=== PATIENT | male | born 1940 | race Caucasian/White ===

== ENCOUNTER → 2016-12-17 | Outpatient (CLI) | payer OTHER ==
[~2016-12-17] VITALS: Ht 172.7 cm; Wt 74.8 kg
[~2016-12-17] MED LIST: ALEVE220 MG PO; ASPIR 8181 M1 PO; CADUET 5 MG-101 EACH PO; LOVAZA1000 MG PO; PRISTIQ ER25 MG PO; XANAX1 MG PO
--- NOTE | ~2016-12-17 | HPC ---
[facility] [address] [place] [address] PAIN MANAGEMENT CONSULTATION Name: JENNIFER CRAIG Room #: REG EULALIO Jac#: [id number] Admission: 12/17/16 Attend Phys: Dino Sandoval DO Discharge: Date of : 42 Report #: [id number] THIS REPORT FOR: //name// CC: ARPITA Sandoval HISTORY OF PRESENT ILLNESS: The patient is a very pleasant 76-year-old gentleman seen in consultation at the request of Dr. Tineo for evaluation of pain, neck, right shoulder, posterior occiput. The patient notes symptoms have been present since June without specific antecedent trauma and overuse. Aleve 2 tablets b.i.d. has really afforded nominal efficacy. He notes he has some tingling behind the right ear, pain on the top of the right shoulder. Pain is exacerbated with side bending the head to the right. Notes symptoms are fairly nominal rates in the 0-1 on the VAS. Notes that they are transient again specifically with cervical side bending and sometimes the cervical flexion. REVIEW OF SYSTEMS: Complete review of systems attached to chart and gone over with the patient. The patient has been for couple of years, has relocated to [place] from [place] to be closer to his children. He is in remarkably good health, does not drink alcohol to excess nor does he use tobacco products. He does have some hypertension treated with Caduet, some low grade depression following loss of his . He is on Pristiq 25 mg a little bit of gastroesophageal reflux on no medication. He had been treated for prostate cancer in 2000, prostatectomy with no residual concerns. A little bit of dyslipidemia for which he takes Lovaza. Again, the patient is retired. Pain impact score is actually remarkably low 70. PHYSICAL EXAMINATION: GENERAL: Reveals a 5 feet 8 inches, 165 pounds gentleman in no acute distress at present. BMI is 25.1 kilograms per meter squared. VITAL SIGNS: Blood pressure is 158/80, pulse is 69, respirations 16. NEUROLOGIC: Cranial nerves 2-12 are grossly intact. Pupils equal, reactive to light and accommodation. Extraocular muscles are intact. MUSCULOSKELETAL: Cervical range of motion is modestly limited. Cervical side bending to the right and flexion both exacerbate pain with the tight sensation in the right splenius capitis and posterior occipital area a little bit of paresthesia in the top of the shoulder over the deltoid. Slight decreased left deltoid strength, though he is in a very good general health. He does have a slightly positive Tinel's on the left radial, again contralateral to the right-sided symptoms. Objective hand grasp strength is good with opposition of some to the index, long and ring finger. Congenitally he has had difficulty with thumb to fifth finger opposition. Remaining exam is unremarkable. HEART: Regular rhythmical without murmur. LUNGS: Clear to auscultation. [facility] [address] [place] [address] PAIN MANAGEMENT CONSULTATION Name: JENNIFER CRAIG Room #: REG EULALIO Nathan#: [id number] Admission: 12/17/16 Attend Phys: Dino Sandoval DO Discharge: Date of : 42 Report #: [id number] ABDOMEN: Unremarkable. EXTREMITIES: Lower extremity strength is preserved. Gait is tandem. Skin integument is intact. DIAGNOSTIC STUDIES: Include cervical spine series from 12/01/2016 noting moderate disk height loss at C5-C6 and C6-C7 with anterior protruding osteophytes noted at C2, C4, C5 C6, and C7. ASSESSMENT: Symptomatic cervical spondylosis by clinical exam, likely C2-C3 on the right. No radicular symptoms noted. Otherwise, remarkably healthy 76-year-old gentleman. RECOMMENDATIONS: We discussed therapeutic options today at length, at some point if symptoms remain problematic, we can consider facet joint injections under fluoroscopy, right C2-C3 and C3-C4. Presently, however, the patient feels symptoms are fairly nominal. Recommending continuing range of motion, moderate gym work, which he is currently doing, can consider topical Voltaren gel if indicated though again presently just low-dose Aleve seems to be moderately efficacious. Thank you for allowing me to participate in the patient's care. It appears that his symptoms are resolving somewhat spontaneously. I will be happy to see him any time if his symptoms become more problematic and/or start to interfere with function. Presently, however, we elected to postpone any interventional therapy. <ELECTRONICALLY SIGNED> By: Dino Sandoval DO 12/23/16 [id number] Dino Sandoval DO /nt
[2016-12-17 14:05] VITALS: BP 158/80
== END | disposition home or self-care (01) ==
LOC: PAIN 12:44
DX: M47.892 Other spondylosis, cervical region (principal); I10 Essential (primary) hypertension; F34.89 Other specified persistent mood disorders; K21.9 Gastro-esophageal reflux disease without esophagitis; E78.5 Hyperlipidemia, unspecified; Z85.46 Personal history of malignant neoplasm of prostate; Z79.899 Other long term (current) drug therapy; Z98.890 Other specified postprocedural states; Z79.82 Long term (current) use of aspirin

== ENCOUNTER → 2018-07-27 | Outpatient (CLI) | payer OTHER ==
[~2018-07-27] VITALS: Ht 172.7 cm; Wt 71.8 kg
[~2018-07-27] MED LIST changes: +ALTACE10 MG PO; +CELEBREX 200 M200 M1 PO; +GABAPENTIN 100100 MG PO; +LIPITOR10 MG PO; +TRAMADOL 50 MG50 MG PO
--- NOTE | ~2018-07-27 | HPC ---
[facility] [address] [place] [address] PAIN MANAGEMENT CONSULTATION Name: JENNIFER CRAIG Room #: REG EULALIO Ritu.#: [id number] Admission: 07/27/18 ������������������ Attend Phys: Joe Tran MD Discharge: ������������������ Date of : 42 Report #: [id number] THIS REPORT FOR: //name// CC: ARPITA Tran DATE OF SERVICE: 07/27/2018 CHIEF COMPLAINT: Low back pain with radicular features into the left L5-S1 distribution. The patient presents to the pain clinic today for an epidural injection. He has classic sciatica following an L5-S1 distribution on the left. He presents with an MRI report from February that demonstrates a bulging annulus with the left neural foraminal stenosis. The stenosis at L5-S1 and correlates with his symptoms. There is also an L4-L5 disk protrusion that encroaches a bit further to the right. His symptoms originally began on the right and then improved with physical therapy. There was some consideration given to piriformis syndrome. He is very active and young for his age. He is 78 years old, still likes to run with a dog and has otherwise been very physically fit. He lost 30 pounds after his 4 years ago. He has moved recently to [place] to be closer to family. MEDICATIONS: Tramadol 50 mg as needed, gabapentin 100 mg b.i.d., Celebrex 200 mg b.i.d. atorvastatin 10 mg daily. Ramipril daily, alprazolam 1 mg as needed at bedtime for sleep, aspirin 81 mg, Pristiq ER for situational depression. ALLERGIES: None. PAST MEDICAL HISTORY: Positive for prostatectomy in 2000. He has done well since that hernia repair in 2004. Treatment for hypertension. PHYSICAL EXAMINATION: GENERAL: Pleasant, outgoing 78-year-old. VITAL SIGNS: His blood pressure 153/95, heart rate 76, respirations 14. NEUROLOGIC: Moves independently from sitting to standing position and walks with a stable gait, but reports that he feels a tingling and weakness longer he is on his feet. He can stand without difficulty. He does have crutches that he brought with him today because of concern for fall. CHEST: Clear. CARDIAC: Rhythm is regular. BACK: Reveals good range of motion, minimal tenderness. Straight leg raising is positive on the left, reproducing symptoms in the L5-S1 distribution. There is no pain with internal and external rotation of the hips. No tenderness in [facility] [address] [place] [address] PAIN MANAGEMENT CONSULTATION Name: JENNIFER CRAIG Room #: REG EULALIO ChaneyHaylee#: [id number] Admission: 07/27/18 ������������������ Attend Phys: Joe Tran MD Discharge: ������������������ Date of : 42 Report #: [id number] any other joints. IMPRESSION: 1. Lumbar radiculopathy involving the left L5-S1 distribution. He has correlating neural foraminal narrowing on the MRI, which was reviewed personally. 2. Resolving L5 radiculopathy on the right. This presented before his current symptoms developed. PROCEDURE: Right paramedian epidural steroid injection under fluoroscopic guidance, L5-S1. DESCRIPTION OF PROCEDURE: He was taken to fluoroscopic suite, placed prone, skin prepped with ChloraPrep. Skin anesthetized over the L5-S1 interspace. A 20-gauge Tuohy epidural needle was advanced first attempt in the epidural space using a loss of resistance technique. There was no blood or CSF aspirated. 0.25 mL of Omnipaque injected and excellent epidurogram was achieved. Most of the dye spread into the left with some encroachment on the right. This was then followed by 4 mL of 0.5% lidocaine mixed with 80 mg of triamcinolone. He tolerated the procedure well and was observed for a short time and discharged. Follow up in 1 month. ��������������������������������������������� ���������������������������������������� By: ��������������������������������������������� [id number] Joe Tran MD /nt
[2018-07-27 14:55] VITALS: BP 153/95
--- NOTE | 2018-07-27 15:09 | NUR ---
Pain Clinic Assessment: 1. History of Osteoarthritis: Not Applicable History of Rheumatoid Arthritis: Not Applicable 2. Height: 5 ft. 8 in. 172.7 cm. Weight: 158.2 lb. oz. 71.759 kg. Patient's BMI: 24.1 3. Vital Signs: BP: 153/95 Pulse: 76 Resp: 14 Temp: 02 Sat: 97 ECG Mon: 4. Pain Intensity: 3 5. Fall Risk: Dizziness: N Needs help standing or walking: Y Fallen in the last 3 months: N Fall risk comments: 6. Patient on Blood Thinner: None 7. History of Hypertension: Y 8. Opioid Therapy greater than 6 weeks: N Opiate Contract Signed: 9. Risk Assessment Tool Provided: MODERATE RISK 07/23 10. Functional Assessment Tool: 11. Recreational Drug Use: Never Drug Type: Tobacco Use: Former Smoker Tobacco Type: Amount or Packs/day: How Many Years: Alcohol Use: Yes Frequency: Daily Quant: 2-3
== END | disposition home or self-care (01) ==
LOC: PAIN 07:03
DX: M54.16 Radiculopathy, lumbar region (principal); M99.73 Connective tissue and disc stenosis of intervertebral foramina of lumbar region; I10 Essential (primary) hypertension; Z79.899 Other long term (current) drug therapy; Z79.82 Long term (current) use of aspirin; Z98.890 Other specified postprocedural states; Z87.891 Personal history of nicotine dependence

== ENCOUNTER → 2018-08-24 | Outpatient (CLI) | payer OTHER ==
[~2018-08-24] VITALS: Ht 172.7 cm; Wt 70.1 kg
[~2018-08-24] MED LIST changes: +MOBIC15 MG PO
--- NOTE | ~2018-08-24 | HPC ---
[facility] [place] [address] PAIN MANAGEMENT CONSULTATION Name: JENNIFER CRAIG Room #: REG Emmy Chaney.#: [id number] Admission: 08/24/18 ������������������ Attend Phys: Joe Tran MD Discharge: ������������������ Date of : 44 Report #: [id number] THIS REPORT FOR: //name// CC: ARPITA Tran DATE OF SERVICE: 08/24/2018 Followup visit for low back pain with radiculopathy. The patient was seen last on 07/27/2018, received an L5-S1 left paramedian epidural injection. He responded beautifully with significant improvements in pain, although he still has about 30% of his pain. He would like to repeat another injection today and I think it is reasonable within the guidelines. He remains very active. Today, he reports that his pain score is still at its worst, is about a 7, but it varies day-to-day with hours getting in and out of bed and with active movements. It is alleviated with medication and repositioning. The epidural injection again provided fairly substantial pain relief. PHYSICAL EXAMINATION: GENERAL: He is a very fit-appearing 78-year-old, outgoing. VITAL SIGNS: Blood pressure is 138/86, heart rate 76, respirations 14. His BMI is 23.5. He can move easily from sitting to standing position. There are no antalgic features to his gait. There is straight leg raising and discomfort on the left side that follows an L5-S1 distribution. IMPRESSION: Lumbar radiculopathy, L5-S1. RECOMMENDATIONS: Repeat epidural injection under fluoroscopic guidance. PROCEDURE: He was taken to the fluoroscopic suite for the epidural. He was placed prone, skin prepped with ChloraPrep. Skin anesthetized at the L5-S1 interspace left of midline. A 20-gauge Tuohy epidural needle was advanced first attempt in the epidural space with loss of resistance. There was no blood or CSF aspirated. Omnipaque 1 mL was injected. Good spread of dye observed into the epidural space, was followed by 3 mL of 0.5% lidocaine mixed with 80 mg of triamcinolone. He tolerated the procedure well, was observed for 45 minutes and discharged. Followup visit planned in the pain clinic on an as needed basis. We had a [address] [address] PAIN MANAGEMENT CONSULTATION Name: KIARAJENNIFER STRATTON Room #: REG EULALIO Nathan#: [id number] Admission: 08/24/18 ������������������ Attend Phys: Joe Tran MD Discharge: ������������������ Date of : 44 Report #: [id number] discussion today about epidural injections and long-term management of chronic back pain. ��������������������������������������������� ���������������������������������������� By: ��������������������������������������������� [id number] Joe Tran MD /nt
[2018-08-24 10:38] VITALS: BP 138/86
--- NOTE | 2018-08-24 11:16 | NUR ---
Pain Clinic Assessment: 1. History of Osteoarthritis: Not Applicable History of Rheumatoid Arthritis: Not Applicable 2. Height: 5 ft. 8 in. 172.7 cm. Weight: 154.6 lb. oz. 70.126 kg. Patient's BMI: 23.5 3. Vital Signs: BP: 138/86 Pulse: 76 Resp: 14 Temp: 02 Sat: 97 ECG Mon: 4. Pain Intensity: 7-8 5. Fall Risk: Dizziness: N Needs help standing or walking: N Fallen in the last 3 months: N Fall risk comments: 6. Patient on Blood Thinner: None 7. History of Hypertension: Y 8. Opioid Therapy greater than 6 weeks: N Opiate Contract Signed: 9. Risk Assessment Tool Provided: MODERATE RISK 07/23 10. Functional Assessment Tool: 11. Recreational Drug Use: Never Drug Type: Tobacco Use: Former Smoker Tobacco Type: Amount or Packs/day: How Many Years: Alcohol Use: Yes Frequency: Quant:
== END | disposition home or self-care (01) ==
LOC: PAIN 06:48
DX: M54.16 Radiculopathy, lumbar region (principal); G89.29 Other chronic pain; Z87.891 Personal history of nicotine dependence; Z98.890 Other specified postprocedural states; Z79.899 Other long term (current) drug therapy

== ENCOUNTER → 2019-05-18 | Outpatient (CLI) | payer OTHER | LOC: SJCVC 12:54 | DX: I44.0 Atrioventricular block, first degree (principal); I25.10 Atherosclerotic heart disease of native coronary artery without angina pectoris; E78.5 Hyperlipidemia, unspecified; I10 Essential (primary) hypertension; I65.23 Occlusion and stenosis of bilateral carotid arteries; Z79.899 Other long term (current) drug therapy; Z85.46 Personal history of malignant neoplasm of prostate ==

== ENCOUNTER → 2019-05-18 | Outpatient (CLI) | payer OTHER | LOC: SJCVC 15:12 | DX: I44.0 Atrioventricular block, first degree (principal); I25.10 Atherosclerotic heart disease of native coronary artery without angina pectoris; E78.5 Hyperlipidemia, unspecified; I10 Essential (primary) hypertension; I65.23 Occlusion and stenosis of bilateral carotid arteries; Z79.82 Long term (current) use of aspirin; Z79.899 Other long term (current) drug therapy ==

== ENCOUNTER → 2019-09-17 | Outpatient (CLI) | payer OTHER | LOC: SJCVC 14:56 | DX: I44.0 Atrioventricular block, first degree (principal); I25.10 Atherosclerotic heart disease of native coronary artery without angina pectoris; I10 Essential (primary) hypertension; E78.5 Hyperlipidemia, unspecified; I65.23 Occlusion and stenosis of bilateral carotid arteries; Z87.891 Personal history of nicotine dependence; Z79.82 Long term (current) use of aspirin; Z79.899 Other long term (current) drug therapy ==

== ENCOUNTER → 2020-04-29 | Outpatient (CLI) | payer OTHER | LOC: SJCVC 11:05 | PROVIDERS: ATTEND Internal Medicine | DX: R94.31 Abnormal electrocardiogram [ECG] [EKG] (principal); I44.0 Atrioventricular block, first degree; I25.10 Atherosclerotic heart disease of native coronary artery without angina pectoris; E78.5 Hyperlipidemia, unspecified; I10 Essential (primary) hypertension; I65.23 Occlusion and stenosis of bilateral carotid arteries; Z79.82 Long term (current) use of aspirin; Z79.899 Other long term (current) drug therapy; Z87.891 Personal history of nicotine dependence ==

== ENCOUNTER → 2021-04-29 | Outpatient (CLI) | payer OTHER | LOC: SJCVC 14:17 | PROVIDERS: ATTEND Internal Medicine | DX: I44.0 Atrioventricular block, first degree (principal); I25.10 Atherosclerotic heart disease of native coronary artery without angina pectoris; E78.5 Hyperlipidemia, unspecified; I10 Essential (primary) hypertension; I65.23 Occlusion and stenosis of bilateral carotid arteries; Z87.891 Personal history of nicotine dependence; Z72.89 Other problems related to lifestyle; Z79.82 Long term (current) use of aspirin; Z79.899 Other long term (current) drug therapy ==